=== PATIENT | female | born 1950 ===

== ENCOUNTER 2017-05-22 13:12 | Emergency (ER) | payer BC ==
[2017-05-22 13:19] VITALS: RESP 18; BMI 37.5
[2017-05-22] MEDS ORDERED: Enalaprilat 2.5 MG/2 ML IV ONE (13:55)
--- NOTE | 2017-05-22 14:13 | C.PDOC ---
History Of Present Illness 67 yr old female presents to the ER with complaints of worsening dyspnea on exertion, mild headache and unable to tolerate C-Pap for the past 4 days. Patient admits to being compliant with medications and does not over drink her diuretic. Patient states she was seen by her cardiolosgt yesterday and her Lasix dose was increase from 20mg once every morning to 20mg BID. Patient reports taking Tylenol yesterday for the headache, none today. Otherwise, patient denies fever, chills, nausea, vomiting, abdominal pain, diarrhea, weakness or numbness. Occasionally, (like today) not taking lasix in AM due to urinary frequency and incontinence if leaving the home. Attempted eval @ [facility] last night was triaged, but left in waiting room >4 hours then left AMA prior to labs/eval/tx. Ran out of Albuterol puffer- used incorrectly. Time Seen by Provider: 05/22/17 13:40 Chief Complaint (Nursing): High Blood Pressure History Per: Patient History/Exam Limitations: no limitations Onset/Duration Of Symptoms: Days (4) Current Symptoms Are (Timing): Still Present Past Medical History Reviewed: Historical Data, Nursing Documentation, Vital Signs Vital Signs: Last Vital Signs Temp 98.1 F 05/22/17 13:19 Pulse 62 05/22/17 15:18 Resp 18 05/22/17 15:18 BP 160/79 H 05/22/17 15:18 Pulse Ox 100 05/22/17 16:09 - Medical History PMH: Arthritis, Asthma, HTN, Sleep Apnea Other PMH: gastric sleeve for morbid obesity Family History: States: No Known Family Hx - Social History Hx Alcohol Use: No Hx Substance Use: No - Immunization History Hx Tetanus Toxoid Vaccination: No Hx Influenza Vaccination: Yes Hx Pneumococcal Vaccination: No Review Of Systems Except As Marked, All Systems Reviewed And Found Negative. Constitutional: Positive for: Other (chronic constipation and gastric band for which she is instructed by PMD to drink more water. Daily diet with much bread , rice, beans, meat, little fruits or raw vegetables. ). Negative for: Fever, Chills Cardiovascular: Positive for: Other ((+) Dyspnea on exertion) Respiratory: Positive for: Other Gastrointestinal: Positive for: Other (+ chronic constipation.). Negative for: Nausea, Vomiting, Abdominal Pain, Diarrhea Neurological: Positive for: Headache (Mild). Negative for: Weakness, Numbness Physical Exam - Physical Exam Appears: Non-toxic, Other ((+) Fatigue. Obese.) Skin: Warm, Dry Head: Atraumatic, Normacephalic Oral Mucosa: Moist Cardiovascular: Other (Loud S2. No S3.) Respiratory: Normal Breath Sounds, No Rales, No Rhonchi, No Stridor, No Wheezing Gastrointestinal/Abdominal: Normal Exam, Soft, No Tenderness, No Guarding, No Rebound, Other ((+) Obese) Extremity: Normal ROM, No Swelling, Other (No lower extremity edema) Neurological/Psych: Oriented x3, Normal Speech, Normal Motor, Normal Sensation ED Course And Treatment - Laboratory Results Result Diagrams: 05/22/17 14:12 05/22/17 14:12 Lab Interpretation: Normal (bnp/trop neg) ECG: Interpreted By Me ECG Rhythm: Sinus Rhythm ECG Interpretation: Normal Rate From EC O2 Sat by Pulse Oximetry: 100 (RA) Pulse Ox Interpretation: Normal - Radiology CXR: Interpreted by Me CXR Interpretation: Yes: Heart Size, Other (+ mild CHF) - Other Rad CXR X-Ray: Viewed By Me, Read By Radiologist Interpretation: HISTORY: Shortness of breath. COMPARISON: No prior. TECHNIQUE: Chest PA and lateral. FINDINGS: LUNGS: Mild venous congestion. Right hilar prominence. Patchy increased markings at the left lung base with question trace left pleural effusion. Diffuse increased interstitial lung markings. PLEURA: As above. CARDIOVASCULAR: Cardiomegaly. Tortuous ectatic aorta. OSSEOUS STRUCTURES: No significant abnormalities. VISUALIZED UPPER ABDOMEN: Normal. OTHER FINDINGS: None. IMPRESSION: Mild venous congestion. Right hilar prominence. Patchy increased markings at the left lung base with question trace left pleural effusion. Diffuse increased interstitial lung markings. Progress Note: lasix, vasotec IV Reevaluation Time: 16:03 Reassessment Condition: Improved (MALDONADO improved. less SOB) - Physician Consult Information Outcome Of Conversation: 1530: d/w Dr. Scruggs, Occupational Medicine Specialist covering Dr. Caldera. relates 40% EJF, mod CAD, Grade I diastolic disease Medical Decision Making Medical Decision Making: PLAN: * CXR * EKG * Troponin * D-Dimer * CBC * CMP * BNP * Urinalysis * Toradol IVP * Vasotec IV chronic constipation due to poor eating habits and minimal walking and lower fluid intake due to fluid restrictions for CHF therapy Eval wnl, mild CHF c/w pt not taking lasix this AM Extensive time spent explaining and educating meds, diet, exercise, fluid balance to pt and daughter @ bedside. Poor inhaler technique, Aerochamber spacer rx and educated. Disposition Doctor Will See Patient In The: Office Counseled Patient/Family Regarding: Studies Performed, Diagnosis - Disposition Referrals: Marcos Rivas MD [Staff Provider] - Disposition: HOME/ ROUTINE Disposition Time: 16:08 Condition: GOOD Additional Instructions: Estrenemiento: dieta saludable, 7 verduras y frutas crudas diarios. Kadie (comido) en la manana , liquidos monitorizados. Colace 100 mg dos veces al dana (esuavesante de los heces) Occasionalmente garrison un purgante- allan botella de Citrato de Magnesio para evacuarse elvira. CHF: Lasix/Furosemide 20 mg diuretico, se hace orinar por SEIS horas 8AM Lisinopril/Vasotec 20 mg Pression esequiel 8AM Carvedilol 25 mg Pression [place] y frequenca del darrell 8AM y 4PM Atorvastatin 40 mg Cholestererol 8AM Meclizine/Antivert 25 mg Vertigo (le da sueno) vicky necessario Montelukast 10 mg Asthma 8AM Albuterol Asthma 2 puffs (con Aerochamber Spacer) cada 3-4 horas vicky necessario Colace 100 mg Estrenemiento 8AM y 4PM Citrato de Magnesio Estrenemiento Vicky necessario Sigue con cooper Cardiologo en cooper oficina el Allison 05/25 a las 2 de la tarde. Lleva cooper papeles de los examenes del laboratorio Prescriptions: Docusate [Colace] 100 mg PO BID #60 cap Spacer, Inhalation [Aerochamber] 1 dev IH DAILY #1 dev Instructions: Heart Failure (ED), Constipation (ED) Forms: Center'd (Malay) Print Language: ROMANIAN - Clinical Impression Clinical Impression: CHF NYHA class II (symptoms with moderately strenuous activities), Constipation , Asthma - Scribe Statement The provider has reviewed the documentation as recorded by the Scribe Karolyn Seferino Provider Attestation: All medical record entries made by the Megan were at my direction and personally dictated by me. I have reviewed the chart and agree that the record accurately reflects my personal performance of the history, physical exam, medical decision making, and the department course for this patient. I have also personally directed, reviewed, and agree with the discharge instructions and disposition.
[2017-05-22 14:17] LABS: BASO % 0.4 % (0.0-2.0); EOS % 0.2 % (0.0-4.0); HEMATOCRIT 39.5 % (34.0-47.0); LYMPH # 0.9 K/uL (1.0-4.3); MEAN CORPUSCULAR HGB CONC 32.5 g/dL (33.0-37.0); MEAN PLATELET VOLUME 7.8 fL (7.2-11.7); MONO # 0.8 K/uL (0.0-0.8); MONO % 12.5 % (0.0-10.0); NRBC % 0.1 % (0.0-2.0); WHITE BLOOD COUNT 6.4 K/uL (4.8-10.8)
[2017-05-22] MEDS ORDERED: Enalaprilat 2.5 MG/2 ML ONE (14:23)
[2017-05-22 14:26] LABS: INR 1.3
[2017-05-22 14:32] LABS: ALKALINE PHOSPHATASE 82 U/L (38-126); ALT/SGPT 28 U/L (9-52); AST/SGOT 19 U/L (14-36); BILIRUBIN,TOTAL 0.3 mg/dL (0.2-1.3); BLOOD UREA NITROGEN 25 mg/dL (7-17); CALCIUM 9.2 mg/dl (8.6-10.4); CARBON DIOXIDE 22 mmol/L (22-30); CHLORIDE 102 mmol/L (98-107); GFR AFRICAN-AMERICAN > 60; GLUCOSE,RANDOM 94 mg/dL (65-105); POTASSIUM 4.2 mmol/L (3.6-5.2); SODIUM 136 mmol/L (132-148); TOTAL PROTEIN 8.5 g/dL (6.3-8.3)
--- NOTE | 2017-05-22 14:35 | C.PDOC ---
Time Seen by Provider: 05/22/17 13:40 Chief Complaint (Nursing): High Blood Pressure Past Medical History Vital Signs: Last Vital Signs Temp 98.1 F 05/22/17 13:19 Pulse 68 05/22/17 13:19 Resp 18 05/22/17 13:19 BP 157/84 H 05/22/17 13:19 Pulse Ox 100 05/22/17 13:19 - Medical History PMH: Arthritis, Asthma, HTN, Sleep Apnea - Social History Hx Alcohol Use: No Hx Substance Use: No - Immunization History Hx Tetanus Toxoid Vaccination: No Hx Influenza Vaccination: Yes Hx Pneumococcal Vaccination: No ED Course And Treatment O2 Sat by Pulse Oximetry: 100 Disposition - Disposition
[2017-05-22 14:43] LABS: RBC URINE 13 /hpf (0-3); URINE BACTERIA RARE (<OCC); URINE BILIRUBIN NEGATIVE (NEGATIVE); URINE BLOOD 1+ (NEGATIVE); URINE COLOR Yellow (YELLOW); URINE GLUCOSE (UA) NORMAL (Normal); URINE KETONE NEGATIVE (NEGATIVE); URINE LEUKOCYTE ESTERASE 2+ Leu/uL (Negative); URINE PROTEIN 1+ mg/dL (NEGATIVE); URINE UROBILINOGEN NORMAL mg/dL (0.2-1.0); WBC URINE 4 /hpf (0-5)
--- NOTE | 2017-05-22 15:03 | RAD ---
HISTORY: Shortness of breath COMPARISON: No prior. TECHNIQUE: Chest PA and lateral FINDINGS: LUNGS: Mild venous congestion. Right hilar prominence. Patchy increased markings at the left lung base with question trace left pleural effusion. Diffuse increased interstitial lung markings. PLEURA: As above. CARDIOVASCULAR: Cardiomegaly. Tortuous ectatic aorta. OSSEOUS STRUCTURES: No significant abnormalities. VISUALIZED UPPER ABDOMEN: Normal. OTHER FINDINGS: None. IMPRESSION: Mild venous congestion. Right hilar prominence. Patchy increased markings at the left lung base with question trace left pleural effusion. Diffuse increased interstitial lung markings.
[2017-05-22 16:54] VITALS: BP 160/77; PULSE 60; TEMP 98; O2SAT 98
--- NOTE | 2017-05-24 17:28 | CARD ---
APPROVED REPORT EKG Measurement Heart [id number] <Conclusion> Normal sinus rhythm Voltage criteria for left ventricular hypertrophy T wave abnormality, consider anterior ischemia Abnormal ECG
== END 2017-05-22 16:50 | disposition home or self-care (01) ==
LOC: C.ER 13:12
DX: J45.909 Unspecified asthma, uncomplicated (principal); K59.00 Constipation, unspecified; I50.9 Heart failure, unspecified; E66.01 Morbid (severe) obesity due to excess calories; I10 Essential (primary) hypertension
CPT/HCPCS: 71020; 80053; 81001; 83880; 84484; 85025; 85378; 85610; 85730; 96374; 96375; 99284; J1885; J1940